=== PATIENT | male | born 1970 | race Caucasian/White ===

== ENCOUNTER 2021-03-16 17:55 | Emergency (ER) | payer OTHER ==
[~2021-03-16 17:55] MED LIST: CETIRIZINE HCL10 MG PO; OMEGA-31000 MG PO; OMEPRAZOLE40 MG PO; PEPCID20 MG PO; PRINIVIL10 MG PO; SINGULAIR10 MG PO; ZANTAC150 MG PO
[2021-03-16 19:49] LABS: HEMOGLOBIN 15.8 gm/dl (14.0-17.5); RED BLOOD COUNT 4.97 M/UL (4.20-5.50); WHITE BLOOD COUNT 8.2 K/UL (4.5-11.0)
[2021-03-16 20:20] LABS: BUN/CREATININE RATIO 11 (0-10)
[2021-03-16] MEDS ORDERED: FLAGYL500 MG PO (22:43)
== END 2021-03-16 22:45 | disposition home or self-care (01) ==
LOC: ER1 17:55
PROVIDERS: Physician Assistant
DX: K52.9 Noninfective gastroenteritis and colitis, unspecified (principal); Z88.8 Allergy status to other drugs, medicaments and biological substances
CPT/HCPCS: 80053; 85025; 99284; Q9967